=== PATIENT | female | born 1990 | race American Indian/Alaskan Native ===

== ENCOUNTER 2017-05-09 08:00 | Inpatient (IN) | payer OTHER ==
[~2017-05-09 08:00] MED LIST: Ketorolac 30 MG/ML SDV ONE; Lactated Ringers 2,000 ML ONE; Morphine PF 1 MG/ML Amp ONE; Ondansetron 4 MG/2 ML SDV ONE; Oxytocin 10 Units/1 ML SDV ONE; Oxytocin/Lactated Ringers 10 UNIT/1,000 ML BAG IV SCH; Sodium Chloride 0.9% 10 ML Syringe FLUSH PRN; ceFAZolin 1 GM Vial ONE
[2017-05-09] MEDS ORDERED: Metoclopramide 10 MG/2 ML SDV IVPUSH ONE (08:04)
[2017-05-09] MEDS ORDERED: Citric Acid/Sodium Citrate Solution 30 ML Cup PO ONE (08:45)
[2017-05-09] MEDS ORDERED: ceFAZolin 2 GM in Premix Bag 1 BAG IV ONE (08:45)
[2017-05-09] MEDS: Lactated Ringers 1,000 ML IV SCH ×2 (09:18→09:41)
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
[2017-05-09] MEDS ORDERED: FLU Vacc QS 2017-18 (6mos UP)/PF 60 MCG/0.5 ML Syringe IM ONE (09:45)
[2017-05-09] MEDS ORDERED: Meperidine PF 50 MG/ML Syringe IVPUSH PRN (10:04)
[2017-05-09] MEDS ORDERED: fentaNYL 100 MCG/2 ML SDV IVPUSH PRN (10:04)
[2017-05-09] MEDS ORDERED: diphenhydrAMINE 50 MG/ML SDV IVPUSH PRN ×2 (10:04→12:12)
[2017-05-09] MEDS ORDERED: Ondansetron 4 MG/2 ML SDV IVPUSH PRN (10:04)
[2017-05-09] MEDS ORDERED: ePHEDrine/Normal Saline 25 MG/5 ML Syringe ONE (10:15)
--- NOTE | 2017-05-09 10:57 | PCM.POSTAN ---
POST ANESTHESIA ASSESSMENT - MENTAL STATUS Mental Status: Alert, Oriented - VITAL SIGNS Pulse Rate: 86 SaO2: 99 Resp Rate: 12 Blood Pressure: 112/67 Temperature: 98 F - RESPIRATORY Respiratory Status: Respiratory Rate WNL, Airway Patent, O2 Saturation Stable - CARDIOVASCULAR CV Status: Pulse Rate WNL, Blood Pressure Stable - GASTROINTESTINAL GI Status: No Symptoms - PAIN Pain Score: 0 - POST OP HYDRATION Hydration Status: Adequate & Stable
[2017-05-09] MEDS ORDERED: Dextrose 5%-Lactated Ringers 1,000 ML IV SCH (12:12)
[2017-05-09] MEDS ORDERED: Lanolin 100% Cream 7 GM Tube TOP PRN (12:12)
[2017-05-09] MEDS ORDERED: Naloxone 0.4 MG/ML SDV IVPUSH PRN (12:12)
[2017-05-09] MEDS ORDERED: Ondansetron 4 MG/2 ML SDV IV PRN (12:12)
[2017-05-09] MEDS ORDERED: Docusate Sodium 100 MG Cap PO PRN (12:12)
[2017-05-09] MEDS: Ketorolac 30 MG/ML SDV IVPUSH SCH ×2 (16:25→23:05)
[2017-05-09] MEDS: Acetaminophen/oxyCODONE 325-5 MG Tab PO PRN (21:58)
[2017-05-10] MEDS: Ketorolac 30 MG/ML SDV IVPUSH SCH (05:13)
[2017-05-10] MEDS: Acetaminophen/oxyCODONE 325-5 MG Tab PO PRN ×3 (06:26→20:36)
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
[2017-05-10] MEDS: Ibuprofen 600 MG Tab PO PRN ×2 (10:38→21:47)
--- NOTE | 2017-05-10 12:31 | PCM48HPAN ---
Post Anesthesia Note - EVALUATION WITHIN 48HRS OF ANESTHETIC Vital Signs in Normal Range: Yes Patient Participated in Evaluation: Yes Respiratory Function Stable: Yes Airway Patent: Yes Cardiovascular Function Stable: Yes Hydration Status Stable: Yes Pain Control Satisfactory: Yes Nausea and Vomiting Control Satisfactory: Yes Mental Status Recovered: Yes
[2017-05-11] MEDS: Acetaminophen/oxyCODONE 325-5 MG Tab PO PRN ×5 (01:04→23:24)
[2017-05-11] MEDS: Ibuprofen 600 MG Tab PO PRN ×2 (04:40→17:32)
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
[2017-05-11] MEDS ORDERED: FLU Vacc QS 2017-18 (6mos UP)/PF 60 MCG/0.5 ML Syringe IM ONE (18:08)
[2017-05-12] MEDS: Acetaminophen/oxyCODONE 325-5 MG Tab PO PRN ×2 (03:44→09:35)
[2017-05-12] MEDS: Ibuprofen 600 MG Tab PO PRN (05:56)
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
== END 2017-05-12 11:50 | disposition home or self-care (01) | DRG 766 ==
LOC: JD.OB 08:40
PROVIDERS: ADMIT Obstetrics & Gynecology; ATTEND Obstetrics & Gynecology
PROC: 10D00Z1 Extraction of Products of Conception, Low, Open Approach (ICD-10-PCS; principal; 2017-05-09)
DX: O75.89 Other specified complications of labor and delivery (principal); Z98.890 Other specified postprocedural states; Z3A.39 39 weeks gestation of pregnancy; Z37.0 Single live birth; Z87.81 Personal history of (healed) traumatic fracture; Z88.0 Allergy status to penicillin
CPT/HCPCS: 01961; 36415; 85025; 85027; 86850; 86900; 86901; 90686; 94762; A9270-GY; G0008; J0690; J1200; J1885; J2274; J2405; J2590; J2765; J3010; J7042; J7050; J7120

== ENCOUNTER 2018-06-24 06:02 | Inpatient (IN) | payer OTHER ==
[~2018-06-24 06:02] MED LIST changes: +Citric Acid/Sodium Citrate Solution 30 ML Cup PO ONE; -Ketorolac 30 MG/ML SDV ONE; -Lactated Ringers 2,000 ML ONE; +Metoclopramide 10 MG/2 ML SDV IVPUSH ONE; -Morphine PF 1 MG/ML Amp ONE; -Ondansetron 4 MG/2 ML SDV ONE; -Oxytocin 10 Units/1 ML SDV ONE; -Oxytocin/Lactated Ringers 10 UNIT/1,000 ML BAG IV SCH; -ceFAZolin 1 GM Vial ONE
[2018-06-24] MEDS ORDERED: Diphtheria,Pertussis(Acell),Tetanus Vaccine 0.5 ML Syringe IM ONE (06:48)
[2018-06-24] MEDS ORDERED: Oxytocin/Lactated Ringers 10 UNIT/1,000 ML BAG IV SCH (07:00)
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
[2018-06-24] MEDS ORDERED: Ketorolac 30 MG/ML SDV ONE (07:23)
[2018-06-24] MEDS ORDERED: Oxytocin 10 Units/1 ML SDV ONE (07:23)
[2018-06-24] MEDS ORDERED: ceFAZolin 1 GM Vial ONE (07:23)
[2018-06-24] MEDS ORDERED: Ondansetron 4 MG/2 ML SDV ONE (07:23)
[2018-06-24] MEDS ORDERED: Lactated Ringers 2,000 ML ONE (07:23)
[2018-06-24] MEDS ORDERED: Morphine PF 1 MG/ML Amp ONE (07:24)
[2018-06-24] MEDS ORDERED: Bupivacaine 0.75%/D5W 2 ML Amp ONE (07:27)
[2018-06-24] MEDS: Lactated Ringers 1,000 ML IV SCH ×2 (07:45→07:46)
[2018-06-24] MEDS ORDERED: ePHEDrine/Normal Saline 25 MG/5 ML Syringe ONE (07:59)
[2018-06-24] MEDS ORDERED: Ondansetron 4 MG/2 ML SDV IVPUSH PRN (08:04)
[2018-06-24] MEDS ORDERED: diphenhydrAMINE 50 MG/ML SDV IVPUSH PRN ×2 (08:04→10:04)
[2018-06-24] MEDS ORDERED: fentaNYL 100 MCG/2 ML SDV IVPUSH PRN (08:04)
--- NOTE | 2018-06-24 09:07 | PCM.OPNOTE ---
- General Post-Op/Procedure Note Date of Surgery/Procedure: 06/24/18 Operative Procedure(s): Repeat low transverse Findings: Moderate amount of scar tissue between the fascia and rectus. Minimal intraabdominal scar tissue. Baby boy in a vertex presentation with weight of 7 lbs 13 oz and APGARS of 9 & 9. Normal appearance of the uterus, fallopian tubes , and ovaries. Pre Op Diagnosis: 39 weeks gestation. Hx of Post-Op Diagnosis: Same Anesthesia Technique: Spinal Primary Surgeon: Yuliana Meyer Secondary Surgeon: Corine Howe Anesthesia Provider: Alexandru Lee Reason Manager Staffing Was Necessary: BMI of patient. Speed/safety of procedure. Pathology: Cord blood collected. Placenta discarded. Fluid Replacement, Intraop: 3,000 Output, Urine Amount: 125 EBL in mLs: 800 Complications: None Condition: Good Free Text/Narrative:: The risks, benefits, indications, potential complications, and alternatives were explained to the patient and informed consent obtained. After induction of anesthesia, the patient was placed in a supine position and then draped and prepped in the usual sterile manner. A Pfannenstiel incision was made and carried down through the subcutaneous tissue to the fascia. Fascial incision was made and extended transversely. The fascia was from the underlying rectus tissue superiorly and inferiorly. The peritoneum was identified and entered. Peritoneal incision was extended longitudinally. The utero-vesical peritoneal reflection was incised transversely and the bladder flap was bluntly freed from the lower uterine segment. A low transverse uterine incision was made sharply with a scalpel and extended bluntly in a cephalocaudad direction. A baby boy was delivered from a vertex presentation with aid of a vacuum extraction due to floating station. This was applied for less than 20 seconds with a pressure of 550 mm Hg. APGARS as above. After the umbilical cord was clamped and cut cord blood was obtained for evaluation. The placenta was removed intact and appeared normal. The uterus was exteriorized and cleared of clots. The uterine outline, tubes and ovaries appeared normal. The uterine incision was closed with running locked sutures of 0 Vicryl. Hemostasis was obtained with a second imbricating layer of 0 vicryl. The uterus was then placed back into the abdomen. The infracolic gutters were cleared of blood clots. The fascia was then reapproximated with running sutures of 0 Vicryl The subcutaneous tissue was irrigated with sterile warm normal saline, hemostasis obtained with cautery. The skin was reapproximated with running Subcuticular 4 -0 monocryl sutures. Instrument, sponge, and needle counts were correct prior the abdominal closure and at the conclusion of the case.
--- NOTE | 2018-06-24 09:10 | PCM.POSTAN ---
POST ANESTHESIA ASSESSMENT - MENTAL STATUS Mental Status: Alert, Oriented - VITAL SIGNS Pulse Rate: 71 SaO2: 99 Resp Rate: 12 Blood Pressure: 131/64 Temperature: 97.5 F - RESPIRATORY Respiratory Status: Respiratory Rate WNL, Airway Patent, O2 Saturation Stable, Supplemental Oxygen - CARDIOVASCULAR CV Status: Pulse Rate WNL, Blood Pressure Stable - GASTROINTESTINAL GI Status: No Symptoms - PAIN Pain Score: 0 - POST OP HYDRATION Hydration Status: Adequate & Stable
[2018-06-24] MEDS ORDERED: Naloxone 0.4 MG/ML SDV IVPUSH PRN (10:04)
[2018-06-24] MEDS ORDERED: Dextrose 5%-Lactated Ringers 1,000 ML IV SCH (10:04)
[2018-06-24] MEDS ORDERED: Lanolin 100% Cream 7 GM Tube TOP PRN (10:04)
[2018-06-24] MEDS ORDERED: ePHEDrine 50 MG/ML SDV IVPUSH PRN (10:04)
[2018-06-24] MEDS ORDERED: Docusate Sodium 100 MG Cap PO PRN (10:04)
[2018-06-24] MEDS: Ketorolac 30 MG/ML SDV IVPUSH SCH ×2 (14:21→20:35)
[2018-06-25] MEDS: Ketorolac 30 MG/ML SDV IVPUSH SCH (02:31)
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
--- NOTE | 2018-06-25 07:46 | PCM48HPAN ---
Post Anesthesia Note - EVALUATION WITHIN 48HRS OF ANESTHETIC Vital Signs in Normal Range: Yes Patient Participated in Evaluation: Yes Respiratory Function Stable: Yes Airway Patent: Yes Cardiovascular Function Stable: Yes Hydration Status Stable: Yes Pain Control Satisfactory: Yes Nausea and Vomiting Control Satisfactory: Yes Mental Status Recovered: Yes (sore today. Sitting up in bed-no nausea) Pulse Rate: 93 Resp Rate: 15 Temperature: 98.2 F Blood Pressure: 118/52
[2018-06-25] MEDS: Acetaminophen/oxyCODONE 325-5 MG Tab PO PRN ×3 (08:13→20:20)
[2018-06-25] MEDS ORDERED: Ibuprofen 600 MG Tab PO PRN (08:30)
[2018-06-25] MEDS ORDERED: Oxytocin/Lactated Ringers 10 UNIT/1,000 ML BAG IV ONE (13:12)
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
[2018-06-26] MEDS: Acetaminophen/oxyCODONE 325-5 MG Tab PO PRN (07:28)
[2018-06-26] MEDS ORDERED: Diphtheria,Pertussis(Acell),Tetanus Vaccine 0.5 ML Syringe IM ONE (11:11)
== END 2018-06-26 11:21 | disposition home or self-care (01) | DRG 788 ==
LOC: JD.OB 06:02
PROVIDERS: ADMIT Obstetrics & Gynecology; ATTEND Obstetrics & Gynecology
PROC: 6A550ZT Pheresis of Cord Blood Stem Cells, Single (ICD-10-PCS; principal; 2018-06-24)
PROC: 10D00Z1 Extraction of Products of Conception, Low, Open Approach (ICD-10-PCS; principal; 2018-06-24)
PROC: 3E0234Z Introduction of Serum, Toxoid and Vaccine into Muscle, Percutaneous Approach (ICD-10-PCS; 2018-06-26)
DX: O34.211 Maternal care for low transverse scar from previous cesarean delivery (principal); N85.8 Other specified noninflammatory disorders of uterus; Z3A.39 39 weeks gestation of pregnancy; Z37.0 Single live birth; O99.62 Diseases of the digestive system complicating childbirth; K21.9 Gastro-esophageal reflux disease without esophagitis; Z23 Encounter for immunization; Z88.0 Allergy status to penicillin
CPT/HCPCS: 01961; 36415; 59025; 85027; 86592; 86850; 86900; 86901; 90471; 90700; 94762; A9270-GY; J0690; J1885; J2001; J2274; J2405; J2590; J2765; J7050; J7120

== ENCOUNTER 2021-08-02 05:40 | Inpatient (IN) | payer OTHER ==
[2021-08-02] MEDS: Lactated Ringers 1,000 ML IV SCH ×2 (06:05→06:38)
[2021-08-02] MEDS ORDERED: Citric Acid/Sodium Citrate Solution 30 ML Cup PO ONE (06:45)
[2021-08-02] MEDS ORDERED: Metoclopramide 10 MG/2 ML SDV IVPUSH ONE (06:45)
[2021-08-02] MEDS ORDERED: Morphine PF 10 MG/10 ML SDV ONE (07:09)
[2021-08-02] MEDS ORDERED: Oxytocin 10 Units/1 ML SDV ONE ×2 (07:09→09:36)
[2021-08-02] MEDS ORDERED: Ondansetron 4 MG/2 ML SDV ONE (07:12)
[2021-08-02] MEDS ORDERED: ceFAZolin 2 GM in Sodium Chloride 0.9% 50 ML IV ONE (07:45)
[2021-08-02] MEDS ORDERED: Methylergonovine 0.2 MG/1 ML Amp ONE (07:45)
[2021-08-02] MEDS ORDERED: Ketorolac 30 MG/ML SDV ONE (07:57)
[2021-08-02] MEDS ORDERED: Oxytocin/Lactated Ringers 10 UNIT/1,000 ML BAG IV SCH (08:00)
[2021-08-02] MEDS ORDERED: ePHEDrine 50 MG/ML SDV ONE (08:12)
[2021-08-02] MEDS ORDERED: Dexamethasone 4 MG/ML SDV ONE (08:14)
[2021-08-02] MEDS ORDERED: Midazolam 1 MG/ML 2 ML SDV ONE (08:19)
[2021-08-02] MEDS ORDERED: fentaNYL 100 MCG/2 ML SDV ONE (08:21)
[2021-08-02] MEDS ORDERED: Ketamine 500 mg/10 ML MDV ONE (08:22)
[2021-08-02] MEDS ORDERED: Carboprost Tromethamine 250 MCG/1 ML Amp ONE ×2 (08:26→09:04)
[2021-08-02] MEDS ORDERED: diphenhydrAMINE 50 MG/ML SDV IVPUSH PRN ×2 (08:52→10:37)
[2021-08-02] MEDS ORDERED: Ondansetron 4 MG/2 ML SDV IVPUSH PRN (08:52)
[2021-08-02] MEDS ORDERED: fentaNYL 100 MCG/2 ML SDV IVPUSH PRN (08:52)
[2021-08-02] MEDS ORDERED: Carboprost Tromethamine 250 MCG/1 ML Amp IM ONE (09:03)
[2021-08-02] MEDS ORDERED: Lactated Ringers 1,000 ML ONE ×3 (09:36)
[2021-08-02] MEDS ORDERED: Ondansetron 4 MG/2 ML SDV IV PRN (10:37)
[2021-08-02] MEDS ORDERED: Dextrose 5%-Lactated Ringers 1,000 ML IV SCH (10:37)
[2021-08-02] MEDS ORDERED: Acetaminophen/oxyCODONE 325-5 MG Tab PO PRN (10:37)
[2021-08-02] MEDS ORDERED: Naloxone 0.4 MG/ML SDV IVPUSH PRN (10:37)
[2021-08-02] MEDS: Acetaminophen/oxyCODONE 325-5 MG Tab PO PRN (13:48)
[2021-08-02] MEDS: Docusate Sodium 100 MG Cap PO PRN (13:52)
[2021-08-02] MEDS: Ketorolac 30 MG/ML SDV IVPUSH SCH ×2 (14:45→20:53)
[2021-08-02] MEDS ORDERED: Lactated Ringers 1,000 ML IV ONE (17:59)
[2021-08-03] MEDS ORDERED: Lactated Ringers 500 ML IV ONE (01:18)
[2021-08-03] MEDS: Ketorolac 30 MG/ML SDV IVPUSH SCH (02:27)
[2021-08-03] MEDS: Acetaminophen/oxyCODONE 325-5 MG Tab PO PRN ×3 (05:12→19:08)
[2021-08-03] MEDS ORDERED: Sodium Chloride 0.9% 1,000 ML IV SCH (06:45)
[2021-08-03] MEDS: Ibuprofen 600 MG Tab PO PRN (15:59)
[2021-08-03] MEDS ORDERED: Simethicone 80 MG Tab.Chew PO PRN (18:49)
[2021-08-03] MEDS: Docusate Sodium 100 MG Cap PO PRN (19:08)
[2021-08-04] MEDS: Acetaminophen/oxyCODONE 325-5 MG Tab PO PRN ×2 (04:08→08:46)
[2021-08-04] MEDS: Ibuprofen 600 MG Tab PO PRN (08:45)
[2021-08-04] MEDS: Docusate Sodium 100 MG Cap PO PRN (08:46)
== END 2021-08-04 11:30 | disposition home or self-care (01) | DRG 787 ==
LOC: JD.OB 05:40
PROVIDERS: ADMIT Obstetrics & Gynecology; ATTEND Obstetrics & Gynecology
PROC: 10D00Z1 Extraction of Products of Conception, Low, Open Approach (ICD-10-PCS; principal; 2021-08-02)
PROC: 30233N1 Transfusion of Nonautologous Red Blood Cells into Peripheral Vein, Percutaneous Approach (ICD-10-PCS; 2021-08-03)
DX: O34.211 Maternal care for low transverse scar from previous cesarean delivery (principal); D62 Acute posthemorrhagic anemia; O30.043 Twin pregnancy, dichorionic/diamniotic, third trimester; O32.1XX2 Maternal care for breech presentation, fetus 2; Z37.2 Twins, both liveborn; O99.02 Anemia complicating childbirth; O24.420 Gestational diabetes mellitus in childbirth, diet controlled; O99.62 Diseases of the digestive system complicating childbirth; K21.9 Gastro-esophageal reflux disease without esophagitis; O99.52 Diseases of the respiratory system complicating childbirth; J45.909 Unspecified asthma, uncomplicated; Z3A.38 38 weeks gestation of pregnancy
CPT/HCPCS: 01961; 36415; 36430; 59025; 82947; 85025; 85027; 86592; 86850; 86870; 86900; 86901; 86922; 94762; A9270-GY; J1100; J1885; J2210; J2250; J2274; J2370; J2405; J2590; J2765; J3010; J3490; J7120; J7121; P9016